=== PATIENT | female | born 1975 | race Hispanic/Latino ===

== ENCOUNTER 2021-03-05 23:26 | Emergency (ER) | payer OTHER ==
[2021-03-05 23:55] VITALS: BP 118/69
[2021-03-06 00:04] LABS: BILIRUBIN,URINE Negative (NEGATIVE); COLOR,URINE Dark Yellow (YELLOW); GLUCOSE, URINE (UA) Negative (NEGATIVE); KETONES,URINE 15 mg/dL (NEGATIVE); LEUKOCYTE ESTERASE ,URINE Trace (NEGATIVE); NITRATE,URINE Negative (NEGATIVE); OCCULT BLOOD,URINE Trace (NEGATIVE); PH,URINE 5.5 (5.0-8.0); PROTEIN,URINE POS 1+ mg/dL (NEGATIVE)
[2021-03-06 00:06] LABS: APPEARANCE,URINE SLIGHTLY CLOUDY (CLEAR)
[2021-03-06 00:14] LABS: BACTERIA,URINE Few /HPF (None Seen); CALCIUM OXALATE CRYSTALS,UR Moderate /LPF (None Seen); MUCUS,URINE Few LPF (None Seen); RBC,URINE 0-1 /HPF (0-1); WBC,URINE 0-1 /HPF (0-1)
[2021-03-06 02:47] VITALS: BP 102/61
[2021-03-06] MEDS ORDERED: ACETAMINOPHEN 500 MG TABLET PO ONE (05:00)
[2021-03-06] MEDS ORDERED: BENZ-17 PO (06:02)
[2021-03-06] MEDS ORDERED: ACET-66 PO (06:02)
[2021-03-06 06:21] VITALS: BP 110/65
== END 2021-03-06 06:31 | disposition home or self-care (01) ==
LOC: EDH 23:26
DX: J06.9 Acute upper respiratory infection, unspecified (principal); Z20.822 Contact with and (suspected) exposure to COVID-19; I10 Essential (primary) hypertension; Z85.528 Personal history of other malignant neoplasm of kidney
CPT/HCPCS: 81001; 87635; 87804 ×2; 99283; C9803